=== PATIENT | female | born 1955 | race Caucasian/White ===

== ENCOUNTER 2018-11-25 15:46 | Emergency (ER) | payer BC ==
[~2018-11-25] VITALS: Ht 154.9 cm; Wt 95.5 kg
[~2018-11-25 15:46] MED LIST: LACT1CAP26 PO; NO HOME MEDS
[2018-11-25 16:05] VITALS: BP 161/87
[2018-11-25 17:07] LABS: BASOPHILS # (AUTO) 0.1 X10'3 (0-0.2); BASOPHILS % (AUTO) 0.9 % (0-1); EOSINOPHILS # (AUTO) 0.2 X10'3 (0-0.9); EOSINOPHILS % (AUTO) 1.9 % (0-6); LYMPHOCYTES # (AUTO) 1.8 X10'3 (1.1-4.8); LYMPHOCYTES % (AUTO) 18.3 % (21-51); MEAN CORPUSCULAR HEMOGLOBIN 29.6 PG (27.0-31.0); MEAN CORPUSCULAR HGB CONC 32.6 g/dL (33.0-36.5); MEAN PLATELET VOLUME 8.3 FL (7.4-10.4); MONOCYTES # (AUTO) 0.6 X10'3 (0-0.9); MONOCYTES % (AUTO) 6.3 % (2-12); NEUTROPHILS # (AUTO) 7.1 X10'3 (1.8-7.7); NEUTROPHILS % (AUTO) 72.6 % (42-75); PLATELET COUNT 232 X10'3 (140-440); RED BLOOD COUNT 4.73 X10'6 (4.20-5.60); RED CELL DISTRIBUTION WIDTH 14.3 % (11.5-14.5); WHITE BLOOD COUNT 9.8 X10'3 (4.5-11.0)
[2018-11-25] MEDS ORDERED: ketorolac tromethamine 15mg/ml inj. IM ONE (17:15)
[2018-11-25 17:24] LABS: ALANINE AMINOTRANSFERASE 38 U/L (12-78); ALBUMIN 3.3 G/DL (3.4-5.0); ALBUMIN/GLOBULIN RATIO 0.8 (1.1-1.5); ALKALINE PHOSPHATASE 112 IU/L (46-116); ANION GAP 7 (8-16); ASPARTATE AMINO TRANSFERASE 20 U/L (10-37); BILIRUBIN,TOTAL 0.2 MG/DL (0.1-1.0); BLOOD UREA NITROGEN 15 MG/DL (7-18); BUN/CREATININE RATIO 17.4 (6.6-38.0); CALCIUM 8.8 MG/DL (8.5-10.1); CHLORIDE 107 MMOL/L (99-107); CREATININE 0.86 MG/DL (0.40-0.90); GLUCOSE 159 MG/DL (70-104); POTASSIUM 3.8 MMOL/L (3.5-5.1); SODIUM 140 MMOL/L (135-145); TOTAL CARBON DIOXIDE 25.6 MMOL/L (24-32); TOTAL PROTEIN 7.3 G/DL (6.4-8.2); eGFR 67 ML/MIN
[2018-11-25] MEDS ORDERED: DICL100G15 TOP (17:32)
[2018-11-25] MEDS ORDERED: IBUP-1985 PO (17:32)
== END 2018-11-25 17:51 | disposition home or self-care (01) ==
LOC: ER 15:47
DX: M24.812 Other specific joint derangements of left shoulder, not elsewhere classified (principal); Z86.19 Personal history of other infectious and parasitic diseases
CPT/HCPCS: 36415; 73030; 80053; 85025; 93005; 96372; 99284; J1885

== ENCOUNTER 2021-06-06 09:44 | Emergency (ER) | payer BC, MEDICARE ==
[~2021-06-06] VITALS: Ht 154.9 cm; Wt 97.7 kg
[~2021-06-06 09:44] MED LIST changes: +DICL100G15 TOP; +IBUP-1985 PO
[2021-06-06 09:48] VITALS: BP 128/75
[2021-06-06 10:16] LABS: BASOPHILS # (AUTO) 0.1 X10'3 (0-0.2); EOSINOPHILS # (AUTO) 0.2 X10'3 (0-0.9); HEMATOCRIT 44.1 % (35.0-45.0); HEMOGLOBIN 14.8 g/dl (12.0-16.0); LYMPHOCYTES # (AUTO) 1.3 X10'3 (1.1-4.8); LYMPHOCYTES % (AUTO) 19.4 % (21-51); MEAN CORPUSCULAR HEMOGLOBIN 29.6 PG (27.0-31.0); MEAN CORPUSCULAR HGB CONC 33.5 g/dL (33.0-36.5); MEAN CORPUSCULAR VOLUME 88.3 FL (78-98); MEAN PLATELET VOLUME 8.2 FL (7.4-10.4); MONOCYTES # (AUTO) 0.5 X10'3 (0-0.9); MONOCYTES % (AUTO) 7.6 % (2-12); NEUTROPHILS # (AUTO) 4.7 X10'3 (1.8-7.7); PLATELET COUNT 261 X10'3 (140-440); RED CELL DISTRIBUTION WIDTH 13.9 % (11.5-14.5); WHITE BLOOD COUNT 6.8 X10'3 (4.5-11.0)
[2021-06-06 10:31] LABS: ALANINE AMINOTRANSFERASE 30 U/L (12-78); ALBUMIN 3.1 G/DL (3.4-5.0); ALBUMIN/GLOBULIN RATIO 0.7 (1.1-1.5); ALKALINE PHOSPHATASE 157 IU/L (46-116); ANION GAP 8 (8-16); ASPARTATE AMINO TRANSFERASE 39 U/L (10-37); BILIRUBIN,TOTAL 0.5 MG/DL (0.1-1.0); BLOOD UREA NITROGEN 10 MG/DL (7-18); BUN/CREATININE RATIO 10.3 (6.6-38.0); CALCIUM 8.7 MG/DL (8.5-10.1); CHLORIDE 101 MMOL/L (99-107); CREATININE 0.97 MG/DL (0.40-0.90); GLUCOSE 406 MG/DL (70-104); LIPASE 71 U/L (73-393); POTASSIUM 3.9 MMOL/L (3.5-5.1); SODIUM 136 MMOL/L (135-145); TOTAL CARBON DIOXIDE 27.5 MMOL/L (24-32); TOTAL PROTEIN 7.4 G/DL (6.4-8.2); eGFR 57 ML/MIN
[2021-06-06 11:17] LABS: CLARITY,URINE CLOUDY (Clear); COLOR,URINE YELLOW (Yellow); GLUCOSE, URINE >=1000 mg/dl (Neg); KETONES,URINE NEGATIVE (Neg); LEUKOCYTE ESTERASE ,URINE TRACE (Neg); NITRITES, URINE NEGATIVE (Neg); OCCULT BLOOD,URINE NEGATIVE (Neg); PROTEIN,URINE NEGATIVE (Neg); UROBILINOGEN,URINE 0.2 E.U/dL (0.2-1.0)
[2021-06-06 11:18] LABS: UA COLLECTION TYPE CLN CATCH MIDSTREAM
[2021-06-06 11:24] LABS: BACTERIA,URINE FEW /HPF (Neg); MUCUS STRANDS FEW /LPF (Neg); RBC,URINE NONE SEEN /HPF (0-2); SQUAMOUS EPITHELIAL CELL,UR MODERATE /LPF (FEW)
[2021-06-06 11:25] LABS: HYALINE CASTS 0-3 /LPF (NEGATIVE)
== END 2021-06-06 12:48 | disposition home or self-care (01) ==
LOC: ER 09:44
DX: R07.89 Other chest pain (principal)
CPT/HCPCS: 36415; 71046; 80053; 81001; 83690; 85025; 87088; 99284

== ENCOUNTER 2022-01-18 08:34 | Day surgery (SDC) | payer MEDICARE ==
[2022-01-18] VITALS (25 sets, daily range): BP systolic 115–151; BP diastolic 64–84
[~2022-01-18] VITALS: Ht 154.9 cm; Wt 75.7 kg
[2022-01-18] MEDS ORDERED: METF-438 PO (09:10)
[2022-01-18 09:22] LABS: BASOPHILS # (AUTO) 0.1 X10'3 (0-0.2); BASOPHILS % (AUTO) 1.3 % (0-1); EOSINOPHILS # (AUTO) 0.1 X10'3 (0-0.9); HEMATOCRIT 48.1 % (35.0-45.0); HEMOGLOBIN 15.9 g/dl (12.0-16.0); LYMPHOCYTES # (AUTO) 1.2 X10'3 (1.1-4.8); LYMPHOCYTES % (AUTO) 18.1 % (21-51); MEAN CORPUSCULAR HEMOGLOBIN 28.5 PG (27.0-31.0); MEAN CORPUSCULAR HGB CONC 33.2 g/dL (33.0-36.5); MEAN PLATELET VOLUME 8.5 FL (7.4-10.4); MONOCYTES # (AUTO) 0.6 X10'3 (0-0.9); MONOCYTES % (AUTO) 9.4 % (2-12); NEUTROPHILS # (AUTO) 4.5 X10'3 (1.8-7.7); NEUTROPHILS % (AUTO) 69.2 % (42-75); PLATELET COUNT 250 X10'3 (140-440); RED BLOOD COUNT 5.59 X10'6 (4.20-5.60); RED CELL DISTRIBUTION WIDTH 16.3 % (11.5-14.5); WHITE BLOOD COUNT 6.5 X10'3 (4.5-11.0)
[2022-01-18] MEDS ORDERED: fentaNYL/PF 50MCG/1 ML 2ML syringe ONE (09:49)
[2022-01-18] MEDS ORDERED: midazolam 1 mg/ML 2ml injection ONE (09:49)
[2022-01-18] MEDS ORDERED: gelatin sponge, absorbable (Gelfoam 12-7MM) sponge TP ONE (10:10)
[2022-01-18] MEDS ORDERED: normal saline 1000ml 1,000 ML IV SCH (10:55)
== END 2022-01-18 13:40 | disposition home or self-care (01) ==
LOC: SSTAY O 08:34
PROVIDERS: ATTEND Preventive Medicine Aerospace Medicine
DX: R16.0 Hepatomegaly, not elsewhere classified (principal); Z86.19 Personal history of other infectious and parasitic diseases; Z79.899 Other long term (current) drug therapy; Z98.890 Other specified postprocedural states
CPT/HCPCS: 36415; 47000; 77012; 85025; 85610; 88341; 88342; 99152; 99153; J2250; J3010; J7030; 32408; 88307; 88313; A4615

== ENCOUNTER 2022-02-17 08:21 | Day surgery (SDC) | payer MEDICARE ==
[~2022-02-17] VITALS: Ht 157.5 cm; Wt 74.5 kg
[~2022-02-17 08:21] MED LIST changes: -DICL100G15 TOP; -IBUP-1985 PO; -LACT1CAP26 PO; +METF-438 PO; -NO HOME MEDS
[2022-02-17] MEDS ORDERED: normal saline 1000ml 1,000 ML IV PRN (08:45)
[2022-02-17] MEDS ORDERED: [UNRECOGNIZED DRUG - OTHER] PO (08:46)
[2022-02-17 08:54] VITALS: BP 121/81
[2022-02-17] MEDS ORDERED: heparin sodium, porcine/PF 100unit/ml 5ML syringe ONE (09:11)
[2022-02-17] MEDS ORDERED: fentaNYL/PF 50MCG/1 ML 2ML syringe ONE (09:12)
[2022-02-17] MEDS ORDERED: LIDOcaine 1% W/epiNEPHrine 1:100,000 20ml vial ONE (09:12)
[2022-02-17] MEDS ORDERED: midazolam 1 mg/ML 2ml injection ONE (09:12)
[2022-02-17 10:50] VITALS: BP 125/75
[2022-02-17 11:00] VITALS: BP 119/66
[2022-02-17 11:15] VITALS: BP 130/64
[2022-02-17 11:30] VITALS: BP 123/72
== END 2022-02-17 11:50 | disposition home or self-care (01) ==
LOC: SSTAY O 08:21
PROVIDERS: ATTEND Preventive Medicine Aerospace Medicine
DX: C22.0 Liver cell carcinoma (principal); Z79.899 Other long term (current) drug therapy; E11.9 Type 2 diabetes mellitus without complications; Z87.891 Personal history of nicotine dependence; Z98.890 Other specified postprocedural states
CPT/HCPCS: 36561; 76937; 77001; 82948; 99152; 99153; C1788; C1894; J1642; J2250; J3010; J3490; J7030; A4620